=== PATIENT | female | born 1975 | race Caucasian/White ===

== ENCOUNTER 2025-01-12 08:49 | Outpatient (OUT) | payer OTHER, SELFPAY ==
[2025-01-12 09:24] LABS: Hematocrit 37.3 % (36.0-48.0); Hemoglobin 12.5 g/dL (12.0-16.0); Immature Granulocytes Abs Auto 0.02 10^3/uL (0.00-0.03); Immature Granulocytes Pct Auto 0.3 % (0.0-0.5); Lymphocytes Absolute Auto 2.1 10^3/uL (1.2-3.8); Mean Corpuscular HGB Conc 33.5 g/dL (29.9-35.2); Mean Corpuscular Hemoglobin 30.6 pg (26.7-34.0); Mean Corpuscular Volume 91.2 fL (81.0-99.0); Platelet Count 338 10^3/uL (150-450); Red Blood Count 4.09 10^6/uL (4.20-5.40); White Blood Count 6.2 10^3/uL (4.0-11.0)
[2025-01-12 10:07] LABS: Alanine Aminotransferase 20 U/L (14-59); Albumin Globulin Ratio 1.1; Albumin Level 3.7 g/dL (3.4-5.0); Alkaline Phosphatase 87 U/L (46-116); Anion Gap 11.1; Aspartate Amino Transferase 10 U/L (15-37); Blood Urea Nitrogen 14.0 mg/dL (7.0-18.0); Calcium 8.8 mg/dL (8.5-10.1); Carbon Dioxide 29.0 mmol/L (21.0-32.0); Chloride 108 mmol/L (98-107); Cholesterol 221 mg/dL (<=200); Estimated GFR (African America >60 (>=60 mL/min/1.73m^2); Estimated GFR (Non-African Ame >60 (>=60 mL/min/1.73m^2); Globulin 3.5 g/dL; Glucose 93 mg/dL (74-106); HDL Cholesterol 32 mg/dL (40-60); Potassium 4.1 mmol/L (3.5-5.1); Sodium 144 mmol/L (136-145); Total Protein 7.2 g/dL (6.4-8.2); Triglycerides 91 mg/dL (<=150); VLDL CHOLESTEROL 18.2 mg/dL
== END 2025-01-12 08:50 | disposition home or self-care (01) ==
PROVIDERS: PCP Nurse Practitioner Family; Visit Provider Nurse Practitioner Family
DX: Z00.00 Encounter for general adult medical examination without abnormal findings (principal); I10 Essential (primary) hypertension
CPT/HCPCS: 36415; 80053; 80061; 85025